=== PATIENT | female | born 1945 | race Caucasian/White ===

== ENCOUNTER 2016-12-01 17:59 | Emergency (ER) | payer MEDICARE, OTHER ==
[2016-12-01 18:23] VITALS: BP 145/69
--- NOTE | 2016-12-01 19:23 | EDM.PDOC ---
[id number]: HURT BACK Time Seen by Provider: 12/01/16 19:22 Source of Information: Reports: Patient History Limitations: Reports: No limitations - History of Present Illness INITIAL COMMENTS - FREE TEXT/NARRATIVE: Ed with c/o low back pain, , rotating mattress and had discomfort and was controlled with Ibuprofen. Last night, Lifted sump pump in to hole and cleaned up after 8" water. Pain worse today and not controlled with aleve , worse when attempting to sit or stand. Denies numbness or radiation of pain. Location: Reports: lower, paraspinal Quality: Reports: Ache, Sharp Severity: moderate Place of Occurrence: home Improves with: Reports: None Worsens with: Reports: Movement Context: Reports: lifting, bending Associated Symptoms: Reports: Denies symptoms. Denies: Difficulty walking, Problems urinating, Weakness - Related Data Allergies/ADRs: Allergies Allergy/AdvReac Type Severity Reaction Status Date / Time Iodine and Iodide Containing Allergy Anaphylactic Verified 12/01/16 18:23 Produc Shock lactose Allergy Nausea and Verified 12/01/16 18:23 Vomiting Penicillins Allergy Itching Verified 12/01/16 18:23 shellfish derived Allergy Nausea and Verified 12/01/16 18:23 Vomiting Home Meds: Home Meds Simvastatin [Simvastatin] 40 mg PO DAILY 02/20/15 [History] metFORMIN [Glucophage] 500 mg PO DAILY 02/20/15 [History] buPROPion [Wellbutrin XL] 150 mg PO DAILY 12/01/16 [History] Past Medical History - Past Health History Medical/Surgical History: Denies Medical/Surgical History Cardiovascular History: Reports: High cholesterol Psychiatric History: Reports: Depression Endocrine/Metabolic History: Reports: Diabetes, type II Social & Family History - Family History Family Medical History: Noncontributory - Tobacco Use Smoking Status *Q: Never Smoker Second Hand Smoke Exposure: No - Caffeine Use Caffeine Use: Reports: Coffee - Recreational Drug Use Recreational Drug Use: No ED ROS GENERAL - Review of Systems Review Of Systems: ROS reveals no pertinent complaints other than HPI. ED EXAM,LOWER BACK PAIN/INJURY - Physical Exam Exam: See Below Exam Limited By: No limitations General Appearance: alert, moderate distress, obese Eye Exam: bilateral eye: EOMI Ears: normal external exam Nose: normal inspection Throat/Mouth: Normal inspection, Normal voice Head: atraumatic, normocephalic Neck: normal inspection, full range of motion Respiratory/Chest: lungs clear, normal breath sounds Cardiovascular: normal peripheral pulses, regular rate, rhythm GI/Abdominal: normal bowel sounds, soft, non tender Back Exam: muscle spasm (right mid sacral pain with radiation point tenderness. spasm with change of position, gait steady, no weakness equal strength. increase pain with right leg raise and flexion at hip. ), paraspinal tenderness Extremities: normal inspection, normal range of motion Neurological: alert, normal mood/affect, normal dorsiflexion, CN II-XII intact, normal plantar flexion, normal gait, normal reflexes, no motor/sensory deficits , oriented x 3 Psychiatric: normal affect, normal mood Skin Exam: Warm, Dry, Intact, Normal color Course - Vital Signs Last Recorded V/S: Last Vital Signs Temp 98.2 F 12/01/16 18:18 Pulse 79 12/01/16 18:18 Resp 14 12/01/16 18:18 BP 145/69 H 12/01/16 18:18 Pulse Ox 97 12/01/16 18:18 - Orders/Labs/Meds Meds: Medications Discontinued Medications Generic Name Dose Route Start Last Admin Trade Name Freq PRN Reason Stop Dose Admin Cyclobenzaprine HCl Confirm 12/01/16 19:44 12/01/16 20:29 Flexeril Administered 12/01/16 19:45 Not Given Dose 10 mg .ROUTE .STK-MED ONE Prednisone Confirm 12/01/16 19:44 12/01/16 20:29 Prednisone Administered 12/01/16 19:45 Not Given Dose 20 mg .ROUTE .STK-MED ONE Departure - Departure Time of Disposition: 19:39 Disposition: Home, Self-Care 01 Condition: good Clinical Impression: Low back pain Qualifiers: Chronicity: acute Back pain laterality: right Sciatica presence: with sciatica Sciatica laterality: sciatica of right side Qualified Code(s): M54.41 - Lumbago with sciatica, right side Instructions: Back Pain, Adult, [id number] Forms: ED Department Discharge Additional Instructions: rest alternate ice and heat to low back tylenol 500-650mg mayalternate with ibuprofen 400mg every 4 hours as needed for pain prednisone 20mg tonight with food medrol dose pack #1 RX Flexeril 10mg 1/2 to 1 tonight for muscle spasm robaxin 500mg 1/2- 1 every 8 hours as needed for muscle spasm #10 clinic follow up this week if not improving in 3-4 days
[2016-12-01] MEDS ORDERED: Cyclobenzaprine 10 MG Tab PO ONE (19:44)
[2016-12-01] MEDS ORDERED: predniSONE 20 MG Tab PO ONE (19:44)
[2016-12-01] MEDS ORDERED: predniSONE 20 MG Tab ONE (19:44)
[2016-12-01] MEDS ORDERED: Cyclobenzaprine 10 MG Tab ONE (19:44)
== END 2016-12-01 19:47 | disposition home or self-care (01) ==
LOC: DL.ED 17:59
DX: M54.41 Lumbago with sciatica, right side (principal); E78.00 Pure hypercholesterolemia, unspecified; F32.9 Major depressive disorder, single episode, unspecified; E11.9 Type 2 diabetes mellitus without complications; Z79.899 Other long term (current) drug therapy; Z79.84 Long term (current) use of oral hypoglycemic drugs; Z91.09 Other allergy status, other than to drugs and biological substances; Z88.0 Allergy status to penicillin; Z91.013 Allergy to seafood; Z91.041 Radiographic dye allergy status
CPT/HCPCS: 99283; A9270-GY

== ENCOUNTER 2017-06-01 09:48 | Emergency (ER) | payer MEDICARE, OTHER ==
[2017-06-01] MEDS ORDERED: methylPREDNISolone Sodium Succinate 125 MG/2 ML SDV IVPUSH ONE (09:49)
[2017-06-01 09:56] VITALS: BP 153/64
--- NOTE | 2017-06-01 10:48 | EDM.PDOC ---
ED HPI GENERAL MEDICAL PROBLEM - General Chief Complaint: Allergic Reaction Stated Complaint: THROAT CLOSING Time Seen by Provider: 06/01/17 10:25 Source of Information: Reports: Patient History Limitations: Reports: No Limitations - History of Present Illness INITIAL COMMENTS - FREE TEXT/NARRATIVE: Pt presents to ER with c/o her throat closing up. She states she was prescribed Welbutrin by Dr. Sanches in [place]. She states her dose was increased to 300mg 4-5 days ago. She states that each day she has taken the increased dose she feels as if she has had a dry mouth and throat, as well as her throat swelling. She denies chest pains or SOB, fever/chills, N/V/D. She states she has difficulty swallowing at times. 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: Reports: Other (see below) Other Treatments CODE ENFORCEMENT SUPERVISOR: 50mg Benadryl - Related Data Allergies Allergy/AdvReac Type Severity Reaction Status Date / Time Iodine and Iodide Containing Allergy Anaphylactic Verified 06/01/17 09:51 Produc Shock lactose Allergy Nausea and Verified 06/01/17 09:51 Vomiting Penicillins Allergy Itching Verified 06/01/17 09:51 shellfish derived Allergy Nausea and Verified 06/01/17 09:51 Vomiting Home Meds: Home Meds Simvastatin [Simvastatin] 40 mg PO DAILY 02/20/15 [History] metFORMIN [Glucophage] 500 mg PO DAILY 02/20/15 [History] buPROPion [Wellbutrin XL] 300 mg PO DAILY 12/01/16 [History] Past Medical History - Past Health History Medical/Surgical History: Denies Medical/Surgical History HEENT History: Reports: Impaired Vision Cardiovascular History: Reports: High Cholesterol Respiratory History: Reports: Asthma Psychiatric History: Reports: Depression Endocrine/Metabolic History: Reports: Diabetes, Type II - Past Surgical History GI Surgical History: Reports: Cholecystectomy Female Surgical History: Reports: Hysterectomy Social & Family History - Family History Family Medical History: Noncontributory - Tobacco Use Smoking Status *Q: Never Smoker Second Hand Smoke Exposure: No - Caffeine Use Caffeine Use: Reports: Coffee, Soda - Recreational Drug Use Recreational Drug Use: No ED ROS ALLERGIC REACTION - Review of Systems Review Of Systems: ROS reveals no pertinent complaints other than HPI. ED EXAM GENERAL NO PERIP PULSE - Physical Exam Exam: See Below Exam Limited By: No Limitations General Appearance: Alert, WD/WN, No Apparent Distress Eye Exam: Bilateral Eye: Normal Inspection Ears: Normal External Exam, Hearing Grossly Normal Nose: Normal Inspection Throat/Mouth: Normal Inspection, Normal Oropharynx, Normal Voice Head: Atraumatic, Normocephalic Neck: Normal Inspection, Supple, Non-Tender, Full Range of Motion, Lymphadenopathy (L), Lymphadenopathy (R) Respiratory/Chest: No Respiratory Distress, Lungs Clear, Normal Breath Sounds, No Accessory Muscle Use, Chest Non-Tender Cardiovascular: Normal Peripheral Pulses, Regular Rate, Rhythm, No Gallop, No JVD, No Murmur, No Rub GI/Abdominal: Normal Bowel Sounds, Soft, Non-Tender, No Organomegaly, No Distention, No Abnormal Bruit, No Mass (Female) Exam: Deferred Rectal (Female) Exam: Deferred Back Exam: Normal Inspection, Full Range of Motion Extremities: Normal Inspection, Normal Range of Motion, Non-Tender, Normal Capillary Refill Neurological: Alert, Oriented, Normal Cognition, Normal Gait, No Motor/Sensory Deficits Psychiatric: Normal Affect, Anxious Skin Exam: Warm, Dry, Intact, Normal Color, No Rash Lymphatic: Adenopathy (bilateral anterior cervical) Course - Vital Signs Last Recorded V/S: Last Vital Signs Temp 98.6 F 06/01/17 09:54 Pulse 82 06/01/17 09:54 Resp 22 H 06/01/17 09:54 BP 153/64 H 06/01/17 09:54 Pulse Ox 99 06/01/17 09:54 - Orders/Labs/Meds Orders: Active Orders 24 hr Category Date Time Status CULTURE STREP A CONFIRMATION [] Stat Lab 06/01/17 10:12 Results STREP SCRN A RAPID W CULT CONF [] Stat Lab 06/01/17 10:12 Results Labs: Laboratory Tests 06/01/17 06/01/17 Range/Units 10:36 10:36 WBC 5.5 (5.0-10.0) 10^3/uL RBC 4.40 (4.2-5.4) 10^6/uL Hgb 14.5 (12.0-16.0) g/dL Hct 42.5 (37.0-47.0) % MCV 96.6 (80-100) fL MCH 33.0 (27.0-34.0) pg MCHC 34.1 (33.0-35.0) g/dL Plt Count 153 (150-450) 10^3/uL Neut % (Auto) 58.5 (42.2-75.2) % Lymph % (Auto) 26.3 (20.5-50.1) % Todd % (Auto) 9.9 H (2-8) % Eos % (Auto) 4.9 H (1.0-3.0) % Baso % (Auto) 0.4 (0.0-1.0) % Sodium 141 (135-145) mmol/L Potassium 4.0 (3.6-5.0) mmol/L Chloride 103 (101-111) mmol/L Carbon Dioxide 25.0 (21.0-31.0) mmol/L Anion Gap 17.0 BUN 11 (7-18) mg/dL Creatinine 0.8 (0.6-1.3) mg/dL Est Cr Clr Drug Dosing 46.33 mL/min Estimated GFR (MDRD) > 60 BUN/Creatinine Ratio 13.75 Glucose 163 H (74-105) mg/dL Calcium 9.2 (8.4-10.2) mg/dl Total Bilirubin 1.1 H (0.2-1.0) mg/dL AST 27 (10-42) IU/L ALT 21 (10-60) IU/L Alkaline Phosphatase 75 (42-121) IU/L Total Protein 7.4 (6.7-8.2) g/dl Albumin 4.5 (3.2-5.5) g/dl Globulin 2.9 Albumin/Globulin Ratio 1.55 Meds: Medications Discontinued Medications Generic Name Dose Route Start Last Admin Trade Name Percyq PRN Reason Stop Dose Admin Methylprednisolone Sodium Succinate 125 mg 06/01/17 09:49 06/01/17 10:04 Solu-Medrol IVPUSH 06/01/17 09:50 125 mg ONETIME ONE Administration Departure - Departure Time of Disposition: 11:07 Disposition: Home, Self-Care 01 Condition: Fair Clinical Impression: Bronchospasm, Anxiety - Discharge Information Instructions: Bronchospasm, Adult, [id number], Panic Attacks, [id number] Forms: ED Department Discharge Additional Instructions: Follow up with Dr. Sanches today regarding Welbutrin dosing. Benadryl as directed, as needed. Return to ER with any further problems. - My Orders Last 24 Hours: My Active Orders 06/01/17 10:12 CULTURE STREP A CONFIRMATION [RM] Stat STREP SCRN A RAPID W CULT CONF [RM] Stat - Assessment/Plan Last 24 Hours: My Active Orders 06/01/17 10:12 CULTURE STREP A CONFIRMATION [] Stat STREP SCRN A RAPID W CULT CONF [RM] Stat
[2017-06-01 11:04] LABS: CHLORIDE,CL 103 mmol/L (101-111); SODIUM,NA 141 mmol/L (135-145)
== END 2017-06-01 11:15 | disposition home or self-care (01) ==
LOC: DL.ED 09:48
DX: J98.01 Acute bronchospasm (principal); F41.9 Anxiety disorder, unspecified; E11.9 Type 2 diabetes mellitus without complications; Z88.0 Allergy status to penicillin; Z91.013 Allergy to seafood; Z79.84 Long term (current) use of oral hypoglycemic drugs; Z79.899 Other long term (current) drug therapy
CPT/HCPCS: 36415; 80053; 85025; 87081; 87430; 96374; 99283; J2930